=== PATIENT | male | born 1960 | race Caucasian/White ===

== ENCOUNTER 2017-06-27 02:10 | Emergency (ER) | payer SELFPAY ==
[2017-06-27 02:19] VITALS: TEMP 98.4; O2SAT 99
[2017-06-27] MEDS ORDERED: Dexamethasone 4 mg/1 ml IM STA (03:56)
--- NOTE | 2017-06-27 05:05 | C.PDOC ---
History Of Present Illness Pt ambulatory to ED with c/o of low back pain started yesterday after lifting up his left leg to fix his socks. Pt with h/o of a "slipped disc" reports similar pain in past but no recent exacerbations. Pt denies fall or other injuries. No urinary or bowel incontinence, no leg weakness or UTI sx Time Seen by Provider: 06/27/17 02:30 Chief Complaint (Nursing): Hip Pain History Per: Patient History/Exam Limitations: no limitations Current Symptoms Are (Timing): Still Present Severity: Moderate Pain Scale Rating Of: 8 Past Medical History Vital Signs: Last Vital Signs Temp 98.4 F 06/27/17 02:14 Pulse 75 06/27/17 02:14 Resp 18 06/27/17 02:14 BP 144/95 H 06/27/17 02:14 Pulse Ox 99 06/27/17 02:14 - Medical History PMH: Back Problems Family History: States: No Known Family Hx - Social History Hx Alcohol Use: Yes Hx Substance Use: No - Immunization History Hx Tetanus Toxoid Vaccination: No Hx Influenza Vaccination: Yes Hx Pneumococcal Vaccination: No Review Of Systems Constitutional: Negative for: Fever Gastrointestinal: Negative for: Abdominal Pain Genitourinary: Negative for: Dysuria, Hematuria Musculoskeletal: Positive for: Back Pain Neurological: Negative for: Weakness, Numbness Physical Exam - Physical Exam Appears: Well, Non-toxic, In Acute Distress (painful) Skin: Normal Color Head: Atraumatic Eye(s): bilateral: Normal Inspection, PERRL Gastrointestinal/Abdominal: Normal Exam, Bowel Sounds, No Tenderness Back: Normal Inspection, No CVA Tenderness, Paraspinal Tenderness (LT), Straight Leg Raising (Lt 40 degrees) Neurological/Psych: Oriented x3 Gait: Steady ED Course And Treatment O2 Sat by Pulse Oximetry: 99 Pulse Ox Interpretation: Normal Progress Note: Pt received toradol IM, valium PO- still c/o of pain. Decadron IM administered with pain relief. Pt is ambulatory in ED with no limitations Disposition Counseled Patient/Family Regarding: Diagnosis - Disposition Referrals: Non [facility] Provider, [Primary Care Provider] - Disposition: HOME/ ROUTINE Disposition Time: 05:10 Condition: STABLE Additional Instructions: Please follow up with PMD Take meds as directed Return to ER if worse Prescriptions: Cyclobenzaprine [Cyclobenzaprine HCl] 10 mg PO HS #10 tab Naproxen [Naprosyn] 1 tab PO BID PRN #25 tab PRN Reason: Pain predniSONE [Prednisone] 40 mg PO DAILY #8 tab Instructions: Low Back Pain (DC) - Clinical Impression Clinical Impression: Low back pain
[2017-06-27 06:32] VITALS: BP 140/87; PULSE 80; RESP 20
== END 2017-06-27 04:35 | disposition home or self-care (01) ==
LOC: C.ER 02:10 → SUPCPDRO 02:10 → C.ER 04:35
DX: M54.5 Low back pain (principal)
CPT/HCPCS: 96372; 99284; J1100; J1885

== ENCOUNTER 2017-06-29 13:43 | Emergency (ER) | payer SELFPAY ==
[2017-06-29 13:50] VITALS: PULSE 75; TEMP 98.2; O2SAT 99
--- NOTE | 2017-06-29 14:01 | C.PDOC ---
Time Seen by Provider: 06/29/17 13:54 Chief Complaint (Nursing): Back Pain Past Medical History Vital Signs: Last Vital Signs Temp 98.2 F 06/29/17 13:47 Pulse 75 06/29/17 13:47 Resp 17 06/29/17 14:23 BP Pulse Ox 99 06/29/17 16:11 - Medical History PMH: Back Problems Family History: States: No Known Family Hx - Social History Hx Alcohol Use: Yes Hx Substance Use: No - Immunization History Hx Tetanus Toxoid Vaccination: No Hx Influenza Vaccination: Yes Hx Pneumococcal Vaccination: No ED Course And Treatment O2 Sat by Pulse Oximetry: 99 Reassessment Condition: Improved Medical Decision Making Medical Decision Making: symptoms improving needs work note visit from 2 days ago reviewed OK Patient seen 06/27/17 for back pain came back in for a doctors note for work on 01/06. Did not examine his back today. Disposition Doctor Will See Patient In The: Office Counseled Patient/Family Regarding: Studies Performed, Diagnosis - Disposition Referrals: [facility] [Outside] [facility] [Outside] Disposition: HOME/ ROUTINE Disposition Time: 14:01 Condition: GOOD Instructions: Low Back Pain (DC) Forms: [facility] (Vietnamese), Work Excuse - Clinical Impression Clinical Impression: Low back pain
[2017-06-29 14:23] VITALS: RESP 17
== END 2017-06-29 14:23 | disposition home or self-care (01) ==
LOC: C.ER 13:43
DX: M54.5 Low back pain (principal)